=== PATIENT | male | born 1955 | race Caucasian/White ===

== ENCOUNTER 2018-07-17 18:13 | Emergency (ER) | payer BC ==
[~2018-07-17] VITALS: Ht 175.2 cm; Wt 88.5 kg
[~2018-07-17 18:13] MED LIST: ASPIRIN325 M2 PO; ASPIRIN81 M1 PO; DIALYVITE 8001 TAB PO; FISH OIL 1,0001 EAC3 PO; GRAPE SEED EXTR50 MG PO; LIPITOR80 MG PO; METOPROLOL25 MG PO; NORVASC2.5 MG PO; PLAVIX75 M1 PO; Vit. B650 MG PO
[2018-07-17 18:15] VITALS: BP 160/73
== END 2018-07-17 19:49 | disposition home or self-care (01) ==
LOC: ED 18:13
DX: R13.10 Dysphagia, unspecified (principal); F17.210 Nicotine dependence, cigarettes, uncomplicated; Z79.899 Other long term (current) drug therapy; X58.XXXA Exposure to other specified factors, initial encounter; Y93.89 Activity, other specified; Y92.89 Other specified places as the place of occurrence of the external cause; Y99.8 Other external cause status

== ENCOUNTER → 2019-10-23 | Outpatient (CLI) | payer BC | END | disposition home or self-care (01) | LOC: COVID19 00:20 | DX: Z20.828 Contact with and (suspected) exposure to other viral communicable diseases (principal) ==

== ENCOUNTER → 2020-02-12 | Outpatient (CLI) | payer BC | END | disposition home or self-care (01) | LOC: COVID19 03:12 | PROVIDERS: ATTEND Family Medicine | DX: Z20.828 Contact with and (suspected) exposure to other viral communicable diseases (principal) ==